=== PATIENT | male | born 1995 | race African-American/Black ===

== ENCOUNTER 2021-12-12 14:11 | Inpatient (IN) | payer OTHER ==
[2021-12-12] MEDS ORDERED: LOPERAMIDE HCL 2 MG CAPSULE PO PRN (22:48)
[2021-12-12] MEDS ORDERED: ONDANSETRON *ODT* 4 MG TABLET SL PRN (22:48)
[2021-12-12] MEDS ORDERED: NICOTINE POLACRILEX 2 MG GUM BUC PRN (22:48)
[2021-12-12] MEDS ORDERED: BENZOCAINE/MENTHOL (CHLORASEPTIC ) LOZENGE MM PRN (22:48)
[2021-12-12] MEDS ORDERED: IBUPROFEN 400 MG TABLET (FP) PO PRN (22:48)
[2021-12-12] MEDS ORDERED: MAGNESIUM HYDROX 2400MG/30ML ORAL SUSPENSION 30 ML CUP PO PRN (22:48)
[2021-12-12] MEDS ORDERED: BISMUTH SUBSALICYLATE 524 MG/30 ML PO PRN (22:48)
[2021-12-12] MEDS ORDERED: ACETAMINOPHEN 325 MG TABLET (FP) PO PRN (22:48)
[2021-12-12] MEDS ORDERED: MAG HYDROX/AL HYDROX/SIMETH 30 ML UNIT-DOSE CUP PO PRN (22:48)
[2021-12-12] MEDS ORDERED: MAGNESIUM CITRATE 300 ML BOTTLE PO PRN (22:48)
[2021-12-12] MEDS ORDERED: NALOXONE HCL (KLOXXADO) 8 MG SPRAY NS PRN (22:48)
[2021-12-12] MEDS ORDERED: DICYCLOMINE HCL 10 MG CAPSULE PO PRN (22:48)
[2021-12-12] MEDS ORDERED: methaDONE HCL 10 MG TABLET (FOR DETOX USE ONLY) PO ONE (23:29)
[2021-12-13 10:54] VITALS: BMI 27.4
[2021-12-13] MEDS ORDERED: methaDONE HCL 10 MG TABLET (FOR DETOX USE ONLY) PO ONE (11:54)
[2021-12-13] MEDS ORDERED: cloNIDine HCL 0.1 MG TABLET PO PRN (11:54)
[2021-12-13] MEDS ORDERED: methaDONE HCL 10 MG TABLET (FOR DETOX USE ONLY) ONE (11:58)
[2021-12-13] MEDS ORDERED: diazePAM 5 MG TABLET ONE (12:16)
[2021-12-13] MEDS: diazePAM 5 MG TABLET PO PRN ×2 (12:17→18:33)
[2021-12-13] MEDS: IBUPROFEN 600 MG TABLET (FP) PO PRN (16:28)
[2021-12-13] MEDS: METHOCARBAMOL 500 MG TABLET PO PRN (16:28)
[2021-12-13 16:38] LABS: HEMATOCRIT 45.4 % (35.4-49); HEMOGLOBIN 14.4 GM/dL (11.7-16.9); MCH 23.4 pg (25.7-33.7); MCHC 31.7 g/dl (32.0-35.9); MEAN CELL VOLUME 73.8 fl (80-96); MEAN PLT VOLUME 7.8 fl (7.5-11.1); PLATELET COUNT 381 10^3/uL (134-434); RBC 6.15 M/mm3 (4.00-5.60); RDW 13.9 % (11.9-15.9); WHITE BLOOD COUNT 6.4 K/mm3 (4.0-10.0)
[2021-12-13 16:44] LABS: ALBUMIN 3.7 g/dl (3.4-5.0); BLOOD UREA NITROGEN 9.4 mg/dL (7-18); CALCIUM 9.4 mg/dL (8.5-10.1)
[2021-12-13 16:47] LABS: CREATININE 0.9 mg/dL (0.55-1.3)
[2021-12-13 16:49] LABS: BILIRUBIN,TOTAL 0.4 mg/dL (0.2-1); TOT PROT 7.2 g/dl (6.4-8.2)
[2021-12-13] MEDS: NICOTINE 21 MG/24 HOURS TOPICAL PATCH TD SCH (18:32)
[2021-12-13] MEDS: PRENATAL VITAMINS W/ FOLIC ACID TABLET (FP) PO SCH (20:36)
[2021-12-13] MEDS: MELATONIN 5 MG TABLETS PO SCH (22:15)
[2021-12-13] MEDS: THIAMINE HCL 100 MG TABLET (FP) PO SCH (22:15)
[2021-12-13] MEDS: cloNIDine HCL 0.1 MG TABLET PO PRN (22:16)
[2021-12-14] MEDS: diazePAM 5 MG TABLET PO PRN ×4 (05:18→23:24)
[2021-12-14] MEDS: ACETAMINOPHEN 325 MG TABLET (FP) PO PRN (05:18)
[2021-12-14] MEDS ORDERED: methaDONE HCL 10 MG TABLET (FOR DETOX USE ONLY) PO ONE (10:00)
[2021-12-14] MEDS: PRENATAL VITAMINS W/ FOLIC ACID TABLET (FP) PO SCH (10:16)
[2021-12-14] MEDS: METHOCARBAMOL 500 MG TABLET PO PRN ×2 (10:16→23:24)
[2021-12-14] MEDS: NICOTINE 21 MG/24 HOURS TOPICAL PATCH TD SCH (10:18)
[2021-12-14] MEDS: cloNIDine HCL 0.1 MG TABLET PO PRN ×2 (16:58→22:03)
[2021-12-14] MEDS: QUEtiapine FUMARATE 200 MG TABLET PO SCH (22:03)
[2021-12-14] MEDS: THIAMINE HCL 100 MG TABLET (FP) PO SCH (22:04)
[2021-12-14] MEDS: AMITRIPTYLINE HCL 25 MG TABLET PO SCH (22:04)
[2021-12-14] MEDS: MELATONIN 5 MG TABLETS PO SCH (22:04)
[2021-12-15] MEDS ORDERED: methaDONE HCL 10 MG TABLET (FOR DETOX USE ONLY) PO ONE (10:00)
[2021-12-15] MEDS: PRENATAL VITAMINS W/ FOLIC ACID TABLET (FP) PO SCH (11:06)
[2021-12-15] MEDS: NICOTINE 21 MG/24 HOURS TOPICAL PATCH TD SCH (11:07)
[2021-12-15] MEDS: METHOCARBAMOL 500 MG TABLET PO PRN ×2 (11:07→18:26)
[2021-12-15] MEDS: IBUPROFEN 600 MG TABLET (FP) PO PRN (18:26)
[2021-12-15] MEDS: diazePAM 5 MG TABLET PO PRN (18:29)
[2021-12-15] MEDS: AMITRIPTYLINE HCL 25 MG TABLET PO SCH (22:02)
[2021-12-15] MEDS: ACETAMINOPHEN 325 MG TABLET (FP) PO PRN (22:06)
[2021-12-15] MEDS: QUEtiapine FUMARATE 200 MG TABLET PO SCH (22:06)
[2021-12-15] MEDS: THIAMINE HCL 100 MG TABLET (FP) PO SCH (22:06)
[2021-12-15] MEDS: MELATONIN 5 MG TABLETS PO SCH (22:06)
[2021-12-16] MEDS: diazePAM 5 MG TABLET PO PRN ×3 (09:42→20:44)
[2021-12-16] MEDS: METHOCARBAMOL 500 MG TABLET PO PRN (09:42)
[2021-12-16] MEDS: PRENATAL VITAMINS W/ FOLIC ACID TABLET (FP) PO SCH (09:44)
[2021-12-16] MEDS ORDERED: methaDONE HCL 10 MG TABLET (FOR DETOX USE ONLY) PO ONE (10:00)
[2021-12-16] MEDS: NICOTINE 21 MG/24 HOURS TOPICAL PATCH TD SCH (11:08)
[2021-12-16] MEDS: ACETAMINOPHEN 325 MG TABLET (FP) PO PRN ×2 (13:24→20:45)
[2021-12-16] MEDS: AMITRIPTYLINE HCL 25 MG TABLET PO SCH (22:05)
[2021-12-16] MEDS: QUEtiapine FUMARATE 200 MG TABLET PO SCH (22:05)
[2021-12-16] MEDS: MELATONIN 5 MG TABLETS PO SCH (22:06)
[2021-12-16] MEDS: THIAMINE HCL 100 MG TABLET (FP) PO SCH (22:06)
[2021-12-17] MEDS ORDERED: methaDONE HCL 10 MG TABLET (FOR DETOX USE ONLY) PO ONE (10:00)
[2021-12-17] MEDS: diazePAM 5 MG TABLET PO PRN (10:25)
[2021-12-17] MEDS: METHOCARBAMOL 500 MG TABLET PO PRN (10:25)
[2021-12-17] MEDS: IBUPROFEN 600 MG TABLET (FP) PO PRN (10:26)
[2021-12-17] MEDS: NICOTINE 21 MG/24 HOURS TOPICAL PATCH TD SCH (10:27)
[2021-12-17] MEDS: PRENATAL VITAMINS W/ FOLIC ACID TABLET (FP) PO SCH (10:27)
[2021-12-17] MEDS: ACETAMINOPHEN 325 MG TABLET (FP) PO PRN (11:55)
[2021-12-17] MEDS ORDERED: NICOTINE 10 MG CARTRIDGE (INHALER) IH PRN (12:42)
[2021-12-17] MEDS ORDERED: LIDOCAINE VISCOUS 2% ORAL/TOP 15 ML UNIT-DOSE CUP MM PRN (12:43)
[2021-12-17] MEDS: THIAMINE HCL 100 MG TABLET (FP) PO SCH (22:10)
[2021-12-17] MEDS: QUEtiapine FUMARATE 200 MG TABLET PO SCH (22:11)
[2021-12-17] MEDS: AMITRIPTYLINE HCL 25 MG TABLET PO SCH (22:11)
[2021-12-17] MEDS: MELATONIN 5 MG TABLETS PO SCH (22:12)
[2021-12-17] MEDS: BENZOCAINE 10 % GEL TUBE MM PRN (22:33)
[2021-12-17] MEDS: CHLORHEXIDINE GLUCONATE 0.12% 15ML CUP MM SCH (23:38)
[2021-12-18] MEDS: METHOCARBAMOL 500 MG TABLET PO PRN (06:04)
[2021-12-18] MEDS: IBUPROFEN 600 MG TABLET (FP) PO PRN (09:45)
[2021-12-18] MEDS: BENZOCAINE 10 % GEL TUBE MM PRN (09:46)
[2021-12-18] MEDS: PRENATAL VITAMINS W/ FOLIC ACID TABLET (FP) PO SCH (09:46)
[2021-12-18] MEDS: NICOTINE 21 MG/24 HOURS TOPICAL PATCH TD SCH (09:49)
[2021-12-18] MEDS: CHLORHEXIDINE GLUCONATE 0.12% 15ML CUP MM SCH (09:49)
[2021-12-18] MEDS: diazePAM 5 MG TABLET PO PRN (09:58)
[2021-12-18] MEDS: ACETAMINOPHEN 325 MG TABLET (FP) PO PRN (12:42)
[2021-12-18 14:25] VITALS: BP 145/90; PULSE 64; RESP 19; TEMP 98.4
[2021-12-18] MEDS ORDERED: SUVOREXANT 10 MG TABLET PO PRN (22:00)
== END 2021-12-18 14:45 | disposition other institution (70) | DRG 773 ==
LOC: YASAS 14:11 → Y6N 12-13 14:30 → UNDOADMIN 12-13 16:02 → Y6N 12-13 16:02
PROVIDERS: ADMIT Allergy & Immunology; ATTEND Surgery
PROC: HZ2ZZZZ Detoxification Services for Substance Abuse Treatment (ICD-10-PCS; principal; 2021-12-13)
DX: F11.23 Opioid dependence with withdrawal (principal); F14.20 Cocaine dependence, uncomplicated; F12.20 Cannabis dependence, uncomplicated; F17.210 Nicotine dependence, cigarettes, uncomplicated; F19.280 Other psychoactive substance dependence with psychoactive substance-induced anxiety disorder; F19.24 Other psychoactive substance dependence with psychoactive substance-induced mood disorder; F25.1 Schizoaffective disorder, depressive type; E55.9 Vitamin D deficiency, unspecified; K08.89 Other specified disorders of teeth and supporting structures; R07.9 Chest pain, unspecified
CPT/HCPCS: 36415; 80053; 85027; 86780; 93005; 93010; C9803-CS; U0003; U0005

== ENCOUNTER 2021-12-18 14:51 | Inpatient (IN) | payer OTHER ==
[~2021-12-18 14:51] MED LIST: LOPERAMIDE HCL 2 MG CAPSULE PO PRN; MAG HYDROX/AL HYDROX/SIMETH 30 ML UNIT-DOSE CUP PO PRN; MAGNESIUM CITRATE 300 ML BOTTLE PO PRN; MAGNESIUM HYDROX 2400MG/30ML ORAL SUSPENSION 30 ML CUP PO PRN; NALOXONE HCL (KLOXXADO) 8 MG SPRAY NS PRN; NALOXONE HCL 0.4 MG/ML VIAL IM PRN; NICOTINE POLACRILEX 4 MG GUM BUC PRN; P-EPHED 60MG/TRIPROLIDI 2.5MG TABLET PO PRN; guaiFENesin 200 MG/10 ML 10 ML UNIT-DOSE CUPS PO PRN
[2021-12-18] MEDS: THIAMINE HCL 100 MG TABLET (FP) PO SCH (21:05)
[2021-12-18] MEDS: QUEtiapine FUMARATE 100 MG TABLET (FP) PO SCH (21:06)
[2021-12-18] MEDS ORDERED: MELATONIN 5 MG TABLETS PO SCH (22:00)
[2021-12-18] MEDS: AMITRIPTYLINE HCL 25 MG TABLET PO SCH (22:49)
[2021-12-18] MEDS: CHLORHEXIDINE GLUCONATE 118 ML MOUTHWASH MM SCH (22:50)
[2021-12-18] MEDS: ACETAMINOPHEN 325 MG TABLET (FP) PO PRN (22:55)
[2021-12-19] MEDS: CHLORHEXIDINE GLUCONATE 118 ML MOUTHWASH MM SCH (09:43)
[2021-12-19] MEDS: PRENATAL VITAMINS W/ FOLIC ACID TABLET (FP) PO SCH (09:43)
[2021-12-19] MEDS: ACETAMINOPHEN 325 MG TABLET (FP) PO PRN ×2 (09:44→14:55)
[2021-12-19] MEDS: NICOTINE 21 MG/24 HOURS TOPICAL PATCH TD SCH (09:45)
[2021-12-19] MEDS ORDERED: CHLORHEXIDINE GLUCONATE 118 ML MOUTHWASH MM PRN (11:15)
[2021-12-19] MEDS: NICOTINE 10 MG CARTRIDGE (INHALER) IH PRN (15:44)
[2021-12-19] MEDS: IBUPROFEN 400 MG TABLET (FP) PO PRN (18:34)
[2021-12-19] MEDS: THIAMINE HCL 100 MG TABLET (FP) PO SCH (21:03)
[2021-12-19] MEDS: AMITRIPTYLINE HCL 25 MG TABLET PO SCH (21:04)
[2021-12-19] MEDS: SUVOREXANT 10 MG TABLET PO PRN (21:05)
[2021-12-19] MEDS: QUEtiapine FUMARATE 100 MG TABLET (FP) PO SCH (21:06)
[2021-12-20] MEDS: IBUPROFEN 400 MG TABLET (FP) PO PRN ×2 (07:07→15:52)
[2021-12-20] MEDS: hydrOXYzine PAMOATE 25 MG CAPSULE (FP) PO PRN (08:51)
[2021-12-20] MEDS: NICOTINE 21 MG/24 HOURS TOPICAL PATCH TD SCH (09:52)
[2021-12-20] MEDS: PRENATAL VITAMINS W/ FOLIC ACID TABLET (FP) PO SCH (09:53)
[2021-12-20] MEDS: ACETAMINOPHEN 325 MG TABLET (FP) PO PRN (09:53)
[2021-12-20] MEDS: SUVOREXANT 10 MG TABLET PO PRN (21:06)
[2021-12-20] MEDS: AMITRIPTYLINE HCL 25 MG TABLET PO SCH (21:06)
[2021-12-20] MEDS: THIAMINE HCL 100 MG TABLET (FP) PO SCH (21:06)
[2021-12-20] MEDS: METHOCARBAMOL 500 MG TABLET PO SCH (21:07)
[2021-12-20] MEDS: LACTULOSE 20 GM/30 ML UDC (FOR ORAL USE ONLY) PO SCH (21:07)
[2021-12-20] MEDS: QUEtiapine FUMARATE 100 MG TABLET (FP) PO SCH (21:08)
[2021-12-21] MEDS: hydrOXYzine PAMOATE 25 MG CAPSULE (FP) PO PRN ×4 (06:05→21:18)
[2021-12-21] MEDS: IBUPROFEN 400 MG TABLET (FP) PO PRN ×3 (06:05→17:19)
[2021-12-21] MEDS: LACTULOSE 20 GM/30 ML UDC (FOR ORAL USE ONLY) PO SCH ×2 (10:06→21:17)
[2021-12-21] MEDS: METHOCARBAMOL 500 MG TABLET PO SCH ×2 (10:06→21:18)
[2021-12-21] MEDS: NICOTINE 21 MG/24 HOURS TOPICAL PATCH TD SCH (10:06)
[2021-12-21] MEDS: PRENATAL VITAMINS W/ FOLIC ACID TABLET (FP) PO SCH (10:06)
[2021-12-21] MEDS: THIAMINE HCL 100 MG TABLET (FP) PO SCH (21:17)
[2021-12-21] MEDS: AMITRIPTYLINE HCL 25 MG TABLET PO SCH (21:18)
[2021-12-21] MEDS: QUEtiapine FUMARATE 100 MG TABLET (FP) PO SCH (21:18)
[2021-12-21] MEDS: SUVOREXANT 10 MG TABLET PO PRN (21:19)
[2021-12-22] MEDS: hydrOXYzine PAMOATE 25 MG CAPSULE (FP) PO PRN ×3 (06:56→21:18)
[2021-12-22] MEDS: IBUPROFEN 400 MG TABLET (FP) PO PRN ×2 (06:56→12:37)
[2021-12-22] MEDS: BENZOCAINE 20 % GEL TUBE MM PRN (08:42)
[2021-12-22] MEDS: PRENATAL VITAMINS W/ FOLIC ACID TABLET (FP) PO SCH (09:45)
[2021-12-22] MEDS: NICOTINE 21 MG/24 HOURS TOPICAL PATCH TD SCH (09:45)
[2021-12-22] MEDS: METHOCARBAMOL 500 MG TABLET PO SCH ×2 (09:45→21:18)
[2021-12-22] MEDS: LACTULOSE 20 GM/30 ML UDC (FOR ORAL USE ONLY) PO SCH ×2 (12:34→21:21)
[2021-12-22] MEDS: QUEtiapine FUMARATE 100 MG TABLET (FP) PO SCH (21:18)
[2021-12-22] MEDS: THIAMINE HCL 100 MG TABLET (FP) PO SCH (21:18)
[2021-12-22] MEDS: AMITRIPTYLINE HCL 25 MG TABLET PO SCH (21:18)
[2021-12-22] MEDS: SUVOREXANT 15 MG TABLET PO PRN (21:21)
[2021-12-23] MEDS: NICOTINE 21 MG/24 HOURS TOPICAL PATCH TD SCH (09:18)
[2021-12-23] MEDS: PRENATAL VITAMINS W/ FOLIC ACID TABLET (FP) PO SCH (09:18)
[2021-12-23] MEDS: LACTULOSE 20 GM/30 ML UDC (FOR ORAL USE ONLY) PO SCH ×2 (09:18→21:09)
[2021-12-23] MEDS: METHOCARBAMOL 500 MG TABLET PO SCH ×2 (09:19→21:09)
[2021-12-23] MEDS: IBUPROFEN 400 MG TABLET (FP) PO PRN ×2 (09:19→21:10)
[2021-12-23] MEDS: hydrOXYzine PAMOATE 25 MG CAPSULE (FP) PO PRN ×2 (09:19→21:09)
[2021-12-23] MEDS: BENZOCAINE 20 % GEL TUBE MM PRN (09:41)
[2021-12-23] MEDS ORDERED: NICOTINE 21 MG/24 HOURS TOPICAL PATCH TD PRN (11:19)
[2021-12-23] MEDS: NICOTINE 10 MG CARTRIDGE (INHALER) IH PRN (11:49)
[2021-12-23] MEDS: THIAMINE HCL 100 MG TABLET (FP) PO SCH (21:07)
[2021-12-23] MEDS: QUEtiapine FUMARATE 100 MG TABLET (FP) PO SCH (21:09)
[2021-12-23] MEDS: AMITRIPTYLINE HCL 25 MG TABLET PO SCH (21:09)
[2021-12-24] MEDS: LACTULOSE 20 GM/30 ML UDC (FOR ORAL USE ONLY) PO SCH ×2 (09:01→21:11)
[2021-12-24] MEDS: PRENATAL VITAMINS W/ FOLIC ACID TABLET (FP) PO SCH (09:02)
[2021-12-24] MEDS: IBUPROFEN 400 MG TABLET (FP) PO PRN ×2 (09:02→17:38)
[2021-12-24] MEDS: METHOCARBAMOL 500 MG TABLET PO SCH ×2 (09:02→21:14)
[2021-12-24] MEDS: hydrOXYzine PAMOATE 25 MG CAPSULE (FP) PO PRN ×2 (09:03→21:11)
[2021-12-24] MEDS: BENZOCAINE 20 % GEL TUBE MM PRN (09:03)
[2021-12-24] MEDS: THIAMINE HCL 100 MG TABLET (FP) PO SCH (21:11)
[2021-12-24] MEDS: QUEtiapine FUMARATE 100 MG TABLET (FP) PO SCH (21:12)
[2021-12-24] MEDS: AMITRIPTYLINE HCL 25 MG TABLET PO SCH (21:12)
[2021-12-25] MEDS: hydrOXYzine PAMOATE 25 MG CAPSULE (FP) PO PRN ×2 (09:35→21:41)
[2021-12-25] MEDS: LACTULOSE 20 GM/30 ML UDC (FOR ORAL USE ONLY) PO SCH ×2 (09:35→21:44)
[2021-12-25] MEDS: METHOCARBAMOL 500 MG TABLET PO SCH ×2 (09:36→21:41)
[2021-12-25] MEDS: PRENATAL VITAMINS W/ FOLIC ACID TABLET (FP) PO SCH (09:37)
[2021-12-25] MEDS: IBUPROFEN 400 MG TABLET (FP) PO PRN ×2 (09:37→21:41)
[2021-12-25] MEDS: THIAMINE HCL 100 MG TABLET (FP) PO SCH (21:41)
[2021-12-25] MEDS: QUEtiapine FUMARATE 100 MG TABLET (FP) PO SCH (21:41)
[2021-12-25] MEDS: AMITRIPTYLINE HCL 25 MG TABLET PO SCH (21:41)
[2021-12-25] MEDS: SUVOREXANT 15 MG TABLET PO PRN (21:44)
[2021-12-25] MEDS ORDERED: SUVOREXANT 15 MG TABLET PO PRN (22:00)
[2021-12-26] MEDS: PRENATAL VITAMINS W/ FOLIC ACID TABLET (FP) PO SCH (09:30)
[2021-12-26] MEDS: hydrOXYzine PAMOATE 25 MG CAPSULE (FP) PO PRN ×3 (09:32→21:23)
[2021-12-26] MEDS: IBUPROFEN 400 MG TABLET (FP) PO PRN ×2 (09:32→16:47)
[2021-12-26] MEDS: LACTULOSE 20 GM/30 ML UDC (FOR ORAL USE ONLY) PO SCH ×2 (09:32→21:24)
[2021-12-26] MEDS: METHOCARBAMOL 500 MG TABLET PO SCH ×2 (09:32→21:23)
[2021-12-26] MEDS ORDERED: CHOLECALCIFEROL (VIT D3) 400 UNIT (10 MCG) TABLET PO ONE (12:17)
[2021-12-26] MEDS ORDERED: SALICYLIC ACID 1 APPLIC BOTTLE TP ONE (12:21)
[2021-12-26] MEDS: QUEtiapine FUMARATE 100 MG TABLET (FP) PO SCH (21:22)
[2021-12-26] MEDS: THIAMINE HCL 100 MG TABLET (FP) PO SCH (21:23)
[2021-12-26] MEDS: AMITRIPTYLINE HCL 25 MG TABLET PO SCH (21:27)
[2021-12-27] MEDS: LACTULOSE 20 GM/30 ML UDC (FOR ORAL USE ONLY) PO SCH ×2 (10:06→21:25)
[2021-12-27] MEDS: PRENATAL VITAMINS W/ FOLIC ACID TABLET (FP) PO SCH (10:07)
[2021-12-27] MEDS: METHOCARBAMOL 500 MG TABLET PO SCH ×2 (10:07→21:26)
[2021-12-27] MEDS: NICOTINE 10 MG CARTRIDGE (INHALER) IH PRN (10:10)
[2021-12-27] MEDS: IBUPROFEN 400 MG TABLET (FP) PO PRN (14:30)
[2021-12-27] MEDS: hydrOXYzine PAMOATE 50 MG CAPSULE (FP) PO PRN ×2 (14:31→21:26)
[2021-12-27] MEDS: THIAMINE HCL 100 MG TABLET (FP) PO SCH (21:25)
[2021-12-27] MEDS: SUVOREXANT 15 MG TABLET PO PRN (21:25)
[2021-12-27] MEDS: QUEtiapine FUMARATE 100 MG TABLET (FP) PO SCH (21:26)
[2021-12-27] MEDS: AMITRIPTYLINE HCL 25 MG TABLET PO SCH (21:26)
[2021-12-28] MEDS: PRENATAL VITAMINS W/ FOLIC ACID TABLET (FP) PO SCH (10:04)
[2021-12-28] MEDS: LACTULOSE 20 GM/30 ML UDC (FOR ORAL USE ONLY) PO SCH ×2 (10:04→21:57)
[2021-12-28] MEDS: METHOCARBAMOL 500 MG TABLET PO SCH ×2 (10:04→21:55)
[2021-12-28] MEDS: IBUPROFEN 400 MG TABLET (FP) PO PRN ×2 (10:05→21:56)
[2021-12-28] MEDS: hydrOXYzine PAMOATE 50 MG CAPSULE (FP) PO PRN ×2 (10:05→21:55)
[2021-12-28] MEDS: NICOTINE 10 MG CARTRIDGE (INHALER) IH PRN (12:29)
[2021-12-28] MEDS: THIAMINE HCL 100 MG TABLET (FP) PO SCH (21:55)
[2021-12-28] MEDS: QUEtiapine FUMARATE 100 MG TABLET (FP) PO SCH (21:56)
[2021-12-28] MEDS: AMITRIPTYLINE HCL 25 MG TABLET PO SCH (21:56)
[2021-12-28] MEDS: SUVOREXANT 15 MG TABLET PO PRN (21:57)
[2021-12-28] MEDS: TOLNAFTATE 1% CREAM 15 GM TUBE TP SCH (21:59)
[2021-12-29] MEDS: LACTULOSE 20 GM/30 ML UDC (FOR ORAL USE ONLY) PO SCH ×3 (10:07→21:34)
[2021-12-29] MEDS: PRENATAL VITAMINS W/ FOLIC ACID TABLET (FP) PO SCH (10:07)
[2021-12-29] MEDS: METHOCARBAMOL 500 MG TABLET PO SCH ×2 (10:07→21:34)
[2021-12-29] MEDS: TOLNAFTATE 1% CREAM 15 GM TUBE TP SCH ×2 (10:08→21:35)
[2021-12-29] MEDS: IBUPROFEN 400 MG TABLET (FP) PO PRN (10:09)
[2021-12-29] MEDS: hydrOXYzine PAMOATE 50 MG CAPSULE (FP) PO PRN ×2 (10:10→21:34)
[2021-12-29] MEDS: QUEtiapine FUMARATE 100 MG TABLET (FP) PO SCH (21:34)
[2021-12-29] MEDS: THIAMINE HCL 100 MG TABLET (FP) PO SCH (21:34)
[2021-12-29] MEDS: SUVOREXANT 15 MG TABLET PO PRN (21:35)
[2021-12-29] MEDS: AMITRIPTYLINE HCL 25 MG TABLET PO SCH (21:35)
[2021-12-30] MEDS: LACTULOSE 20 GM/30 ML UDC (FOR ORAL USE ONLY) PO SCH ×3 (07:02→22:01)
[2021-12-30] MEDS: PRENATAL VITAMINS W/ FOLIC ACID TABLET (FP) PO SCH (09:49)
[2021-12-30] MEDS: TOLNAFTATE 1% CREAM 15 GM TUBE TP SCH ×2 (09:49→22:00)
[2021-12-30] MEDS: METHOCARBAMOL 500 MG TABLET PO SCH ×2 (09:49→21:59)
[2021-12-30] MEDS: IBUPROFEN 400 MG TABLET (FP) PO PRN ×2 (09:50→21:58)
[2021-12-30] MEDS: AMITRIPTYLINE HCL 25 MG TABLET PO SCH (21:58)
[2021-12-30] MEDS: hydrOXYzine PAMOATE 50 MG CAPSULE (FP) PO PRN (21:59)
[2021-12-30] MEDS: QUEtiapine FUMARATE 100 MG TABLET (FP) PO SCH (21:59)
[2021-12-30] MEDS: THIAMINE HCL 100 MG TABLET (FP) PO SCH (22:00)
[2021-12-31] MEDS: LACTULOSE 20 GM/30 ML UDC (FOR ORAL USE ONLY) PO SCH ×3 (06:44→21:26)
[2021-12-31] MEDS: BENZOCAINE 20 % GEL TUBE MM PRN (10:19)
[2021-12-31] MEDS: PRENATAL VITAMINS W/ FOLIC ACID TABLET (FP) PO SCH (10:19)
[2021-12-31] MEDS: METHOCARBAMOL 500 MG TABLET PO SCH ×2 (10:19→21:25)
[2021-12-31] MEDS: TOLNAFTATE 1% CREAM 15 GM TUBE TP SCH ×2 (10:19→21:27)
[2021-12-31] MEDS: IBUPROFEN 400 MG TABLET (FP) PO PRN (10:20)
[2021-12-31] MEDS: AMITRIPTYLINE HCL 25 MG TABLET PO SCH (21:25)
[2021-12-31] MEDS: QUEtiapine FUMARATE 100 MG TABLET (FP) PO SCH (21:26)
[2021-12-31] MEDS: THIAMINE HCL 100 MG TABLET (FP) PO SCH (21:27)
[2022-01-01] MEDS: LACTULOSE 20 GM/30 ML UDC (FOR ORAL USE ONLY) PO SCH ×3 (06:56→21:38)
[2022-01-01] MEDS: METHOCARBAMOL 500 MG TABLET PO SCH ×2 (09:13→21:39)
[2022-01-01] MEDS: PRENATAL VITAMINS W/ FOLIC ACID TABLET (FP) PO SCH (09:13)
[2022-01-01] MEDS: TOLNAFTATE 1% CREAM 15 GM TUBE TP SCH ×2 (09:13→23:30)
[2022-01-01] MEDS: IBUPROFEN 400 MG TABLET (FP) PO PRN (09:14)
[2022-01-01] MEDS: AMITRIPTYLINE HCL 25 MG TABLET PO SCH (21:39)
[2022-01-01] MEDS: hydrOXYzine PAMOATE 50 MG CAPSULE (FP) PO PRN (21:39)
[2022-01-01] MEDS: THIAMINE HCL 100 MG TABLET (FP) PO SCH (21:39)
[2022-01-01] MEDS: QUEtiapine FUMARATE 100 MG TABLET (FP) PO SCH (21:39)
[2022-01-01] MEDS: SUVOREXANT 5 MG TABLET PO PRN (21:43)
[2022-01-02] MEDS: LACTULOSE 20 GM/30 ML UDC (FOR ORAL USE ONLY) PO SCH ×3 (06:43→21:30)
[2022-01-02] MEDS: METHOCARBAMOL 500 MG TABLET PO SCH ×2 (09:48→21:31)
[2022-01-02] MEDS: PRENATAL VITAMINS W/ FOLIC ACID TABLET (FP) PO SCH (09:48)
[2022-01-02] MEDS: IBUPROFEN 400 MG TABLET (FP) PO PRN (09:49)
[2022-01-02] MEDS: TOLNAFTATE 1% CREAM 15 GM TUBE TP SCH ×2 (09:50→21:32)
[2022-01-02] MEDS: SALICYLIC ACID 1 APPLIC BOTTLE TP SCH ×2 (14:20→21:33)
[2022-01-02] MEDS: AMITRIPTYLINE HCL 25 MG TABLET PO SCH (21:29)
[2022-01-02] MEDS: THIAMINE HCL 100 MG TABLET (FP) PO SCH (21:29)
[2022-01-02] MEDS: QUEtiapine FUMARATE 100 MG TABLET (FP) PO SCH (21:31)
[2022-01-02] MEDS: SUVOREXANT 5 MG TABLET PO PRN (21:33)
[2022-01-03] MEDS: LACTULOSE 20 GM/30 ML UDC (FOR ORAL USE ONLY) PO SCH ×3 (06:43→21:38)
[2022-01-03] MEDS: METHOCARBAMOL 500 MG TABLET PO SCH ×2 (09:58→21:37)
[2022-01-03] MEDS: SALICYLIC ACID 1 APPLIC BOTTLE TP SCH ×2 (09:58→21:39)
[2022-01-03] MEDS: PRENATAL VITAMINS W/ FOLIC ACID TABLET (FP) PO SCH (09:58)
[2022-01-03] MEDS: TOLNAFTATE 1% CREAM 15 GM TUBE TP SCH ×2 (09:59→21:39)
[2022-01-03] MEDS: IBUPROFEN 400 MG TABLET (FP) PO PRN (10:00)
[2022-01-03] MEDS: QUEtiapine FUMARATE 100 MG TABLET (FP) PO SCH (21:37)
[2022-01-03] MEDS: AMITRIPTYLINE HCL 25 MG TABLET PO SCH (21:37)
[2022-01-03] MEDS: hydrOXYzine PAMOATE 50 MG CAPSULE (FP) PO PRN (21:37)
[2022-01-03] MEDS: THIAMINE HCL 100 MG TABLET (FP) PO SCH (21:37)
[2022-01-04] MEDS: LACTULOSE 20 GM/30 ML UDC (FOR ORAL USE ONLY) PO SCH ×3 (06:33→21:17)
[2022-01-04] MEDS: PRENATAL VITAMINS W/ FOLIC ACID TABLET (FP) PO SCH (10:26)
[2022-01-04] MEDS: METHOCARBAMOL 500 MG TABLET PO SCH ×2 (10:26→21:17)
[2022-01-04] MEDS: SALICYLIC ACID 1 APPLIC BOTTLE TP SCH ×2 (10:27→21:18)
[2022-01-04] MEDS: IBUPROFEN 400 MG TABLET (FP) PO PRN (10:27)
[2022-01-04] MEDS: TOLNAFTATE 1% CREAM 15 GM TUBE TP SCH ×2 (10:32→21:19)
[2022-01-04] MEDS: NICOTINE 10 MG CARTRIDGE (INHALER) IH PRN (10:37)
[2022-01-04] MEDS: THIAMINE HCL 100 MG TABLET (FP) PO SCH (21:17)
[2022-01-04] MEDS: QUEtiapine FUMARATE 100 MG TABLET (FP) PO SCH (21:17)
[2022-01-04] MEDS: hydrOXYzine PAMOATE 50 MG CAPSULE (FP) PO PRN (21:17)
[2022-01-04] MEDS: AMITRIPTYLINE HCL 25 MG TABLET PO SCH (21:17)
[2022-01-04] MEDS ORDERED: SUVOREXANT 15 MG TABLET PO PRN (22:00)
[2022-01-05] MEDS: LACTULOSE 20 GM/30 ML UDC (FOR ORAL USE ONLY) PO SCH ×3 (07:15→21:50)
[2022-01-05] MEDS: PRENATAL VITAMINS W/ FOLIC ACID TABLET (FP) PO SCH (10:17)
[2022-01-05] MEDS: METHOCARBAMOL 500 MG TABLET PO SCH ×2 (10:17→21:27)
[2022-01-05] MEDS: IBUPROFEN 400 MG TABLET (FP) PO PRN (10:17)
[2022-01-05] MEDS: SALICYLIC ACID 1 APPLIC BOTTLE TP SCH ×2 (10:18→21:50)
[2022-01-05] MEDS: TOLNAFTATE 1% CREAM 15 GM TUBE TP SCH ×2 (10:18→21:50)
[2022-01-05 11:25] LABS: ALBUMIN 3.7 g/dl (3.4-5.0); CALCIUM 9.4 mg/dL (8.5-10.1)
[2022-01-05 11:26] LABS: BLOOD UREA NITROGEN 14.4 mg/dL (7-18)
[2022-01-05 11:31] LABS: BILIRUBIN,TOTAL 0.2 mg/dL (0.2-1)
[2022-01-05] MEDS: QUEtiapine FUMARATE 100 MG TABLET (FP) PO SCH (21:26)
[2022-01-05] MEDS: AMITRIPTYLINE HCL 25 MG TABLET PO SCH (21:27)
[2022-01-05] MEDS: hydrOXYzine PAMOATE 50 MG CAPSULE (FP) PO PRN (21:27)
[2022-01-05] MEDS: THIAMINE HCL 100 MG TABLET (FP) PO SCH (21:27)
[2022-01-06] MEDS: LACTULOSE 20 GM/30 ML UDC (FOR ORAL USE ONLY) PO SCH ×3 (06:52→21:08)
[2022-01-06] MEDS: METHOCARBAMOL 500 MG TABLET PO SCH ×2 (09:53→21:10)
[2022-01-06] MEDS: IBUPROFEN 400 MG TABLET (FP) PO PRN (09:54)
[2022-01-06] MEDS: TOLNAFTATE 1% CREAM 15 GM TUBE TP SCH ×2 (09:55→21:11)
[2022-01-06] MEDS: SALICYLIC ACID 1 APPLIC BOTTLE TP SCH ×2 (09:55→21:11)
[2022-01-06] MEDS: PRENATAL VITAMINS W/ FOLIC ACID TABLET (FP) PO SCH (09:55)
[2022-01-06] MEDS: BENZOCAINE 20 % GEL TUBE MM PRN (18:52)
[2022-01-06] MEDS: QUEtiapine FUMARATE 100 MG TABLET (FP) PO SCH (21:10)
[2022-01-06] MEDS: hydrOXYzine PAMOATE 50 MG CAPSULE (FP) PO PRN (21:10)
[2022-01-06] MEDS: AMITRIPTYLINE HCL 25 MG TABLET PO SCH (21:10)
[2022-01-06] MEDS: THIAMINE HCL 100 MG TABLET (FP) PO SCH (21:11)
[2022-01-06] MEDS ORDERED: SUVOREXANT 5 MG TABLET PO PRN (22:00)
[2022-01-07] MEDS: LACTULOSE 20 GM/30 ML UDC (FOR ORAL USE ONLY) PO SCH ×3 (06:24→21:12)
[2022-01-07] MEDS: PRENATAL VITAMINS W/ FOLIC ACID TABLET (FP) PO SCH (09:09)
[2022-01-07] MEDS: METHOCARBAMOL 500 MG TABLET PO SCH ×2 (09:09→21:13)
[2022-01-07] MEDS: IBUPROFEN 400 MG TABLET (FP) PO PRN ×2 (09:09→21:13)
[2022-01-07] MEDS: SALICYLIC ACID 1 APPLIC BOTTLE TP SCH ×2 (09:10→21:15)
[2022-01-07] MEDS: TOLNAFTATE 1% CREAM 15 GM TUBE TP SCH ×2 (09:10→21:47)
[2022-01-07] MEDS: BENZOCAINE 20 % GEL TUBE MM PRN (11:27)
[2022-01-07] MEDS: THIAMINE HCL 100 MG TABLET (FP) PO SCH (21:12)
[2022-01-07] MEDS: AMITRIPTYLINE HCL 25 MG TABLET PO SCH (21:13)
[2022-01-07] MEDS: hydrOXYzine PAMOATE 50 MG CAPSULE (FP) PO PRN (21:13)
[2022-01-07] MEDS: QUEtiapine FUMARATE 100 MG TABLET (FP) PO SCH (21:13)
[2022-01-08] MEDS: LACTULOSE 20 GM/30 ML UDC (FOR ORAL USE ONLY) PO SCH ×3 (07:48→21:17)
[2022-01-08] MEDS: PRENATAL VITAMINS W/ FOLIC ACID TABLET (FP) PO SCH (10:01)
[2022-01-08] MEDS: IBUPROFEN 400 MG TABLET (FP) PO PRN ×2 (10:01→21:20)
[2022-01-08] MEDS: SALICYLIC ACID 1 APPLIC BOTTLE TP SCH ×2 (10:01→21:57)
[2022-01-08] MEDS: METHOCARBAMOL 500 MG TABLET PO SCH ×2 (10:01→21:17)
[2022-01-08] MEDS: TOLNAFTATE 1% CREAM 15 GM TUBE TP SCH ×2 (10:02→21:21)
[2022-01-08] MEDS: BENZOCAINE 20 % GEL TUBE MM PRN (11:40)
[2022-01-08] MEDS: hydrOXYzine PAMOATE 50 MG CAPSULE (FP) PO PRN (21:17)
[2022-01-08] MEDS: THIAMINE HCL 100 MG TABLET (FP) PO SCH (21:17)
[2022-01-08] MEDS: QUEtiapine FUMARATE 100 MG TABLET (FP) PO SCH (21:17)
[2022-01-08] MEDS: AMITRIPTYLINE HCL 25 MG TABLET PO SCH (21:18)
[2022-01-09] MEDS: LACTULOSE 20 GM/30 ML UDC (FOR ORAL USE ONLY) PO SCH ×3 (06:52→21:16)
[2022-01-09] MEDS: PRENATAL VITAMINS W/ FOLIC ACID TABLET (FP) PO SCH (09:58)
[2022-01-09] MEDS: METHOCARBAMOL 500 MG TABLET PO SCH ×2 (09:58→21:17)
[2022-01-09] MEDS: IBUPROFEN 400 MG TABLET (FP) PO PRN ×2 (09:59→21:17)
[2022-01-09] MEDS: SALICYLIC ACID 1 APPLIC BOTTLE TP SCH ×2 (11:20→21:22)
[2022-01-09] MEDS: TOLNAFTATE 1% CREAM 15 GM TUBE TP SCH ×2 (11:20→23:15)
[2022-01-09] MEDS: AMITRIPTYLINE HCL 25 MG TABLET PO SCH (21:17)
[2022-01-09] MEDS: hydrOXYzine PAMOATE 50 MG CAPSULE (FP) PO PRN (21:17)
[2022-01-09] MEDS: QUEtiapine FUMARATE 100 MG TABLET (FP) PO SCH (21:17)
[2022-01-09] MEDS: THIAMINE HCL 100 MG TABLET (FP) PO SCH (21:18)
[2022-01-10] MEDS: LACTULOSE 20 GM/30 ML UDC (FOR ORAL USE ONLY) PO SCH ×3 (06:42→21:25)
[2022-01-10] MEDS: IBUPROFEN 400 MG TABLET (FP) PO PRN ×2 (09:45→21:26)
[2022-01-10] MEDS: PRENATAL VITAMINS W/ FOLIC ACID TABLET (FP) PO SCH (09:46)
[2022-01-10] MEDS: METHOCARBAMOL 500 MG TABLET PO SCH ×2 (09:46→21:25)
[2022-01-10] MEDS: hydrOXYzine PAMOATE 50 MG CAPSULE (FP) PO PRN ×2 (09:47→21:25)
[2022-01-10] MEDS: BENZOCAINE 20 % GEL TUBE MM PRN (09:49)
[2022-01-10] MEDS: TOLNAFTATE 1% CREAM 15 GM TUBE TP SCH ×2 (09:49→21:26)
[2022-01-10] MEDS: SALICYLIC ACID 1 APPLIC BOTTLE TP SCH ×2 (10:27→21:26)
[2022-01-10] MEDS: AMITRIPTYLINE HCL 25 MG TABLET PO SCH (21:25)
[2022-01-10] MEDS: QUEtiapine FUMARATE 100 MG TABLET (FP) PO SCH (21:25)
[2022-01-10] MEDS: THIAMINE HCL 100 MG TABLET (FP) PO SCH (21:25)
[2022-01-10] MEDS: SUVOREXANT 15 MG TABLET PO PRN (21:27)
[2022-01-11] MEDS: LACTULOSE 20 GM/30 ML UDC (FOR ORAL USE ONLY) PO SCH ×3 (06:30→21:16)
[2022-01-11] MEDS: SALICYLIC ACID 1 APPLIC BOTTLE TP SCH ×2 (10:03→21:17)
[2022-01-11] MEDS: PRENATAL VITAMINS W/ FOLIC ACID TABLET (FP) PO SCH (10:04)
[2022-01-11] MEDS: METHOCARBAMOL 500 MG TABLET PO SCH ×2 (10:04→21:16)
[2022-01-11] MEDS: IBUPROFEN 400 MG TABLET (FP) PO PRN ×2 (10:04→21:18)
[2022-01-11] MEDS: TOLNAFTATE 1% CREAM 15 GM TUBE TP SCH ×2 (10:08→21:17)
[2022-01-11] MEDS: BENZOCAINE 20 % GEL TUBE MM PRN (11:34)
[2022-01-11] MEDS: THIAMINE HCL 100 MG TABLET (FP) PO SCH (21:16)
[2022-01-11] MEDS: hydrOXYzine PAMOATE 50 MG CAPSULE (FP) PO PRN (21:16)
[2022-01-11] MEDS: AMITRIPTYLINE HCL 25 MG TABLET PO SCH (21:17)
[2022-01-11] MEDS: QUEtiapine FUMARATE 100 MG TABLET (FP) PO SCH (21:17)
[2022-01-11] MEDS: SUVOREXANT 15 MG TABLET PO PRN (21:18)
[2022-01-12] MEDS: LACTULOSE 20 GM/30 ML UDC (FOR ORAL USE ONLY) PO SCH (06:49)
[2022-01-12 07:03] VITALS: BP 116/78; PULSE 66; RESP 17; TEMP 97.1
== END 2022-01-12 08:55 | disposition home or self-care (01) | DRG 772 ==
LOC: YASAS 14:51 → Y3E 14:53
PROVIDERS: ADMIT Allergy & Immunology; ATTEND Psychiatry & Neurology Pain Medicine
PROC: HZ42ZZZ Group Counseling for Substance Abuse Treatment, Cognitive-Behavioral (ICD-10-PCS; principal; 2021-12-18)
DX: F11.20 Opioid dependence, uncomplicated (principal); F14.20 Cocaine dependence, uncomplicated; F12.20 Cannabis dependence, uncomplicated; F17.210 Nicotine dependence, cigarettes, uncomplicated; F20.9 Schizophrenia, unspecified; F41.9 Anxiety disorder, unspecified; E72.20 Disorder of urea cycle metabolism, unspecified; L84 Corns and callosities
CPT/HCPCS: 36415; 80053; 82140; 86705; 86803